=== PATIENT | female | born 1970 | race Caucasian/White ===

== ENCOUNTER → 2019-05-24 15:18 | Outpatient (CLI) | payer OTHER, SELFPAY ==
--- NOTE | ~2019-05-24 | MM_ITS ---
EXAMINATION: MM screening [facility] BI w andrea HISTORY: Screening mammogram TECHNIQUE: Craniocaudal and mediolateral oblique 3-D tomosynthesis images were obtained and synthetic 2-D images were generated. CAD analysis was submitted and interpreted. COMPARISON: 05/29/2018, 05/09/2018, 01/21/2017 BREAST PARENCHYMAL COMPOSITION: There are scattered areas of fibroglandular density. FINDINGS: Stable low-density mass in the outer right breast has been previously characterized as a cy st. There is no evidence of suspicious mass, calcification, or architectural distortion to suggest ma lignancy in either breast. There has been no suspicious interval change. IMPRESSION: 1. No mammographic evidence of malignancy. 2. Recommend routine screening mammography in one year. BI-RADS Category 2: Benign finding(s). Reviewed, dictated and finalized at location A. OGICAL TECHNICAL OFFICER
== END ==
PROVIDERS: PCP Family Medicine; Visit Provider Family Medicine
DX: Z12.31 Encounter for screening mammogram for malignant neoplasm of breast (principal)
CPT/HCPCS: 77063; 77067

== ENCOUNTER → 2020-01-07 13:28 | Outpatient (CLI) | payer OTHER, SELFPAY ==
--- NOTE | ~2020-01-07 | XR_ITS ---
EXAMINATION: XR shoulder RT min 2V DATE: 01/07/2020 14:10 INDICATION: Right shoulder pain. TECHNIQUE: 4 views of right shoulder were obtained. COMPARISON: None. FINDINGS: Bone alignment is normal. No fracture. Joint spaces are well maintained. IMPRESSION: 1. Normal right shoulder. Reviewed, dictated and finalized at location A. IMPRESSION: 1. Normal right shoulder.
== END ==
PROVIDERS: PCP Nurse Practitioner Family; Visit Provider Nurse Practitioner Family
DX: M25.511 Pain in right shoulder (principal)
CPT/HCPCS: 73030

== ENCOUNTER → 2020-03-06 13:58 | Outpatient (CLI) | payer OTHER, SELFPAY ==
--- NOTE | ~2020-03-06 | XR_ITS ---
EXAMINATION: [id number] DATE: 03/06/2020 14:42 INDICATION: Pleurodynia TECHNIQUE: PA view of the chest and 3 views of the right ribs were obtained. COMPARISON: Chest radiograph dated FINDINGS: Nondisplaced anterior right fifth and minimally displaced anterior right sixth rib fractures. Lungs a re clear with no focal airspace opacities, pulmonary edema, pleural effusion or pneumothorax. Cardiom ediastinal silhouette is normal. IMPRESSION: 1. Anterior right fifth and sixth rib fractures. No acute cardiopulmonary disease. Reviewed, dictated and finalized at location A. IAL TESTER IMPRESSION: 1. Anterior right fifth and sixth rib fractures. No acute cardiopulmonary disea se.
== END ==
PROVIDERS: PCP Family Medicine; Visit Provider Family Medicine
DX: S22.41XA Multiple fractures of ribs, right side, initial encounter for closed fracture (principal); X58.XXXA Exposure to other specified factors, initial encounter
CPT/HCPCS: 71101

== ENCOUNTER → 2020-06-27 17:29 | Outpatient (CLI) | payer OTHER, SELFPAY ==
--- NOTE | ~2020-06-27 | MM_ITS ---
EXAMINATION: MM screening [facility] BI w andrea HISTORY: Screening mammogram TECHNIQUE: Craniocaudal and mediolateral oblique 3-D tomosynthesis images were obtained and synthetic 2-D images were generated. CAD analysis was submitted and interpreted. COMPARISON: 05/24/2019, 05/29/2018, 05/09/2018, 01/21/2017 BREAST PARENCHYMAL COMPOSITION: The breasts are heterogeneously dense, which may obscure small masses . FINDINGS: Again noted is a stable low-density mass in the outer right breast. There is no evidence of suspicious mass, calcification, or architectural distortion to suggest malignancy in either breast. There has been no suspicious interval change. IMPRESSION: 1. No mammographic evidence of malignancy. 2. Recommend routine screening mammography in one year. BI-RADS Category 2: Benign finding(s). Reviewed, dictated and finalized at location A.
== END ==
PROVIDERS: PCP Family Medicine; Visit Provider Family Medicine
DX: Z12.31 Encounter for screening mammogram for malignant neoplasm of breast (principal)
CPT/HCPCS: 77063; 77067

== ENCOUNTER → 2021-08-28 11:17 | Outpatient (CLI) | payer OTHER, SELFPAY ==
--- NOTE | ~2021-08-28 | MM_ITS ---
EXAMINATION: MM screening [facility] BI w andrea HISTORY: Screening mammogram TECHNIQUE: Craniocaudal and mediolateral oblique 3-D tomosynthesis images were obtained and synthetic 2-D images were generated. Bilateral rotated lateral CC views. CAD analysis was submitted and interp reted. COMPARISON: 06/27/2020, 05/24/2019 bilateral screening mammogram examinations 05/29/2018 bilateral diagnostic mammogram and bilateral complete breast ultrasound examination BREAST PARENCHYMAL COMPOSITION: There are scattered areas of fibroglandular density. FINDINGS: Left breast: New 6 mm circumscribed low-density mass is noted in the junction of the anterior middle thirds of the upper central left breast slightly lateral to the mid sagittal plane (craniocaudal Andrea synthesis image 54/81). Scattered additional smaller circumscribed left breast masses are noted. Diagnostic left mammogram an d left breast ultrasound examination are recommended. Right breast: No suspicious mass or architectural distortion, malignant calcification, skin thickenin g or retraction or significant new or developing density is detected. IMPRESSION: 1. Left breast masses 2. Diagnostic left mammogram and left breast ultrasound are recommended BI-RADS Category 0: Incomplete: Needs additional imaging evaluation. Reviewed, dictated and finalized at location A.
== END ==
PROVIDERS: PCP Family Medicine; Visit Provider Family Medicine
DX: Z12.31 Encounter for screening mammogram for malignant neoplasm of breast (principal); R92.8 Other abnormal and inconclusive findings on diagnostic imaging of breast
CPT/HCPCS: 77063; 77067

== ENCOUNTER → 2021-09-20 07:40 | Outpatient (CLI) | payer OTHER, SELFPAY ==
--- NOTE | ~2021-09-20 | MMUS_ITS ---
EXAMINATION: MM diagnostic jennifer LT w andrea, US breast LT complete HISTORY: Follow-up left breast asymmetries TECHNIQUE: Additional 3-D tomosynthesis images of the left breast were performed and synthetic 2-D im ages were generated. CAD analysis was submitted and interpreted. High resolution complete left breast ultrasound was performed. COMPARISON: Comparison to multiple prior studies sequentially, with oldest reviewed study dated 01/05. BREAST PARENCHYMAL COMPOSITION: Breast composed of scattered areas of fibroglandular density FINDINGS: MAMMOGRAPHIC FINDINGS: There are no suspicious masses, calcifications or architectural distortion in the left breast to sugg est malignancy. ULTRASOUND: Complete US of all 4 quadrants of the left breast and retroareolar region was reviewed. There are 2 s mall cysts at 4:00, 5 cm from the nipple measuring 5 mm or less. No sonographic evidence for malignan cy. IMPRESSION: 1. No evidence for malignancy in the left breast. 2. Routine yearly screening mammogram and regular clinical breast examination are recommended. BI-RADS Category 2: Benign finding(s). Reviewed, dictated and finalized at location A. IMPRESSION: 1. No evidence for malignancy in the left breast. 2. Routine yearly screening mammogram and regular clinical breast examination a re recommended. BI-RADS Category 2: Benign finding(s).
== END ==
PROVIDERS: PCP Nurse Practitioner Family; Visit Provider Nurse Practitioner Family
DX: R92.8 Other abnormal and inconclusive findings on diagnostic imaging of breast (principal)
CPT/HCPCS: 76641; 77061; 77065; G0279

== ENCOUNTER 2022-09-13 07:23 | Emergency (ER) | payer OTHER, SELFPAY ==
[2022-09-13 07:25] VITALS: BP 148/83; PULSE 91; RESP 16; TEMP 36.8; O2SAT 99
[2022-09-13 07:44] VITALS: O2SAT 99
[2022-09-13 07:45] VITALS: O2SAT 100
[2022-09-13 07:46] LABS: Appearance Urine Cloudy (Clear); Bacteria Urine 2+ /hpf; Basophils Absolute Auto 0.1 K/mm3 (0.0-0.1); Basophils Percent Auto 0.5 % (0.2-1.2); Bilirubin Urine Negative (Negative); Blood Urine Trace (Negative); Color Urine Yellow (Yellow); Eosinophils Percent Auto 0.2 % (0-4.4); Glucose Urine UA Negative (Negative); Hemoglobin 12.4 g/dL (12.0-15.0); Immature Granulocyte Absolute 0.05 K/mm3 (0.00-0.031); Immature Granulocyte Percent A 0.4 % (0-0.5); Ketones Urine Negative (Negative); Leukocyte Esterase Ur 3+ LEU/UL (Negative); Lymphocytes Absolute Auto 1.69 K/mm3 (0.9-3.2); Lymphocytes Percent Auto 13.1 % (18.3-44.2); Mean Corpuscular HGB Conc 32.6 g/dl (32-36); Mean Corpuscular Hemoglobin 30.3 pg (26-34); Mean Corpuscular Volume 92.9 fl (80-100); Mean Platelet Volume 9.2 fl (7.4-10.4); Monocytes Absolute Auto 0.7 K/mm3 (0.1-0.6); Monocytes Percent Auto 5.3 % (2.6-8.5); Neutrophils Absolute Auto 10.4 K/mm3 (1.3-6.7); Neutrophils Percent Auto 80.5 % (45.5-73.1); Nitrate Urine Negative (Negative); Non Pathogenic Casts 0-2; Platelet Count Result 460 k/mm3 (150-375); Protein Urine Trace mg/dL (Negative); Red Blood Count 4.09 M/mm3 (4.2-5.4); Red Cell Distribution Width 13.5 % (11.5-14.5); Specific Grav Ur 1.016 (1.001-1.035); Squamous Epithelial Cell Urine Many /hpf (Few); Urobilinogen Urine 0.2 mg/dL (<2.0); WBC Urine 21-50 /hpf; White Blood Count 12.9 K/mm3 (4.5-10.0)
[2022-09-13 07:48] LABS: Add Urine Microscopic? YES
[2022-09-13 08:00] VITALS: O2SAT 96
[2022-09-13 08:01] VITALS: BP 125/77; O2SAT 95
[2022-09-13 08:01] LABS: Alanine Aminotransferase 62 U/L (6-35); Albumin Level 4.3 g/dL (3.5-5.1); Alkaline Phosphatase 101 U/L (38-126); Anion Gap 9 mmol/L (8-16); Aspartate Amino Transferase 64 U/L (14-36); Bilirubin,Total 0.7 mg/dL (0.2-1.3); Blood Urea Nitrogen 16 mg/dL (7-17); Calcium 8.8 mg/dL (8.4-10.2); Carbon Dioxide 27 mmol/L (22-30); Chloride 98 mmol/L (98-107); Estimated CRCL calculation 79 ml/min; Estimated Glomerular Filt Rate > 60; Glucose 142 mg/dL (65-110); Lipase 82 U/L (23-300); Potassium 4.2 mmol/L (3.4-5.0); Sodium 134 mmol/L (137-145)
[2022-09-13] MEDS: PANTOPRAZOLE SODIUM IV 40 MG VIAL IV PUSH (08:15)
--- NOTE | 2022-09-13 08:24 | ED.GENADULT ---
HPI - General Adult General Chief complaint: Abdominal Pain Stated complaint: vomiting, abd pain Time Seen by Provider: 09/13/22 07:37 History of Present Illness HPI narrative: Patient is a 52-year-old female who presents ER with abdominal pain for 4 days. Epigastric. Associated with heartburn that is the worst she has had. She did have nausea couple days ago with 1 episode of emesis. No gross blood or coffee-ground appearance. Patient does report she has had 2 dark black stools over the last couple days. They were not loose nor did they have any obvious blood. Patient has no history of GI bleed. She has not had an EGD or colonoscopy. She denies any use of NSAIDs prior to her symptoms. Patient has found no alleviating factors at home. Related Data Home Medications Medication Instructions Recorded Confirmed atorvastatin 10 mg tablet mg 09/13/22 bupropion HCl 300 mg 24 hr tablet, mg PO 09/13/22 extended release cyanocobalamin (vitamin B-12) mcg 09/13/22 09/13/22 1,000 mcg tablet ergocalciferol (vitamin D2) 1,250 09/13/22 mcg (50,000 unit) capsule Allergies Allergy/AdvReac Type Severity Reaction Status Date / Time No Known Allergies Allergy Verified 09/13/22 08:14 Review of Systems Review of Systems: All systems reviewed & are unremarkable except as noted in HPI and below Constitutional: Constitutional: Denies chills, Denies fatigue and Denies fever(s) ENT: Denies nasal congestion and Denies sore throat Cardiovascular: Cardiovascular: Denies chest pain, Denies rapid heart rate and Denies radiating jaw, neck or arm pain Respiratory: Respiratory: Denies cough and Denies dyspnea Gastrointestinal: Gastrointestinal: Reports abdominal pain, Denies constipation, Reports heartburn, Denies diarrhea, Reports nausea and Reports vomiting Genitourinary: Genitourinary: Denies dysuria and Denies flank pain PMFSH Past Medical History Medical History (Updated 09/13/22 @ 08:39 by Ravinder Burt MD) Depression Dyslipidemia Hypertension Surgical History Surgical History (Updated 09/13/22 @ 08:39 by Ravinder Burt MD) No pertinent past surgical history Family History Family History (Updated 02/03/17 @ 09:00 by DOCTOR UNKNOWN) Other Diabetes mellitus Family history of premature coronary heart disease Hypertension Social History Social History Smoking status: Never smoker Alcohol intake: never Exam Narrative: GENERAL: Well-appearing, well-nourished, and in no acute distress. HEAD: Normocephalic, atraumatic. ENT: Mucous membranes moist. CHEST: Clear to auscultation. No respiratory distress. HEART: Regular rate and rhythm. Normal peripheral pulses. ABDOMEN: Soft, nontender, nondistended. Hemoccult positive stool that is not melanotic/black/brown. EXTREMITIES: Normal range of motion. No edema. SKIN: Warm, dry, no rash. NEURO: Alert and oriented x3. PSYCH: Normal mood and affect. Course Course Emergency Course: Discussed case with GI on-call Dr. Palomares. Discussed possible admission versus discharge home. Shared decision making with the patient as well as with GI occurred and patient has opted for discharge home with oral Protonix twice a day. We discussed strict return precautions. Discussed need for outpatient follow-up and endoscopy. Patient verbalized understanding of this. Patient is not on any blood thinning medication. She has had no melena or gross blood. She is not hypotensive and has not been feeling weak or dizzy. Urine appears contaminated and patient does not have symptoms of UTI so she will not be treated. Vital Signs Vital signs: Vital Signs Temperature 98.3 F 09/13/22 07:25 Pulse Rate 91 09/13/22 07:25 Respiratory Rate 16 09/13/22 07:25 Blood Pressure 148/83 H 09/13/22 07:25 Pulse Oximetry 99 09/13/22 07:25 Oxygen Delivery Room Air 09/13/22 07:25 Temperature 98.3 F 09/13/22 07:25 Pulse Rate 91
[2022-09-13] MEDS: BELLADONNA ALK/PHENOB ELIX 10 ML, MAG HYDROX/ALUMINUM HYD/SIMETH 30 ML, LIDOCAINE HCL 2... PO (08:47)
--- NOTE | 2022-09-13 08:53 | PC.NURSE ---
Patient called for RN to come back to room and informed RN that she had vomited after the GI cocktail due to the taste. Patient denies need for anti-emetic at this time. Patient just asked to take a few minutes prior to leaving the department. RN made LUCIEN Duran charge nurse aware.
--- NOTE | 2022-09-13 09:24 | PC.NURSE ---
Patient notified LUCIEN Duran charge nurse that she felt better and was going to go ahead and leave. Finishing Machine Operator Automatic reviewed discharged papers with patient, patient denies any questions or comments at this time. Patient alert and ambulatory to ED exit.
== END 2022-09-13 09:27 | disposition home or self-care (01) ==
PROVIDERS: Emergency Provider Emergency Medicine; PCP Nurse Practitioner Family
DX: K92.2 Gastrointestinal hemorrhage, unspecified (principal); F32.A Depression, unspecified; I10 Essential (primary) hypertension; E78.5 Hyperlipidemia, unspecified
CPT/HCPCS: 36415; 80053; 81001; 81025; 83690; 85025; 87086; 87088; 96374; 99284; A9270; C9113

== ENCOUNTER → 2022-09-24 16:40 | Outpatient (CLI) | payer OTHER, SELFPAY ==
--- NOTE | ~2022-09-24 | MM_ITS ---
EXAMINATION: MM screening [facility] BI w andrea HISTORY: Screening mammogram TECHNIQUE: Craniocaudal and mediolateral oblique 3-D tomosynthesis images were obtained and synthetic 2-D images were generated. CAD analysis was submitted and interpreted. COMPARISON: 09/20/2021 diagnostic left mammogram and complete left breast ultrasound examination 08/24/2021, 06/27/2020, 05/24/2019 bilateral screening mammogram examinations BREAST PARENCHYMAL COMPOSITION: There are scattered areas of fibroglandular density. FINDINGS: Focal asymmetry is noted at mid depth at the inner aspect of the inner left breast on CC pr ojection. Diagnostic left mammogram is recommended, with ultrasound if required. Otherwise no suspicious mass, architectural distortion, malignant microcalcifications, skin thickenin g or retraction or significant new or developing density of either breast. Is detected. IMPRESSION: 1. Focal asymmetry, inner aspect of inner left breast on screening craniocaudal view 2. Diagnostic left mammogram is recommended, with ultrasound if required BI-RADS Category 0: Incomplete: Needs additional imaging evaluation. Reviewed, dictated and finalized at location A.
== END ==
PROVIDERS: PCP Nurse Practitioner Family; Visit Provider Nurse Practitioner Family
DX: Z12.31 Encounter for screening mammogram for malignant neoplasm of breast (principal); R92.8 Other abnormal and inconclusive findings on diagnostic imaging of breast
CPT/HCPCS: 77063; 77067

== ENCOUNTER 2022-10-31 01:20 | Day surgery (SDC) | payer OTHER, SELFPAY ==
[2022-10-21 14:31] VITALS: BMI 31.6
[2022-10-31 10:23] VITALS: BP 122/80; PULSE 79; RESP 18; TEMP 36.9; O2SAT 100
--- NOTE | 2022-10-31 10:36 | WPDHPUPDATE1 ---
History and Physical Update Update Date/Time: 10/31/22 10:36 History and Physical has been reviewed, including an updated exam of the patient. There are NO changes in the patient's condition. Risks, benefits, and alternatives have been discussed and questions answered. Patient agrees to proceed with procedure.
[2022-10-31] MEDS: LACTATED RINGERS 1,000 ML 150 ML IV CONT (10:39)
--- NOTE | 2022-10-31 11:03 | P.PNAN_ITS ---
Anes - Initial Pre Proc Eval Procedure: Operation Date: 10/31/22 11:30 Proposed Procedures p Esophagogastroduodenoscopy - Landen Almazan MD Date/Time: 10/31/22 11:03 Surgeon: Landen Almazan MD Pre Op Diagnosis: melena, GERD, epigastric pain Patient Data Age: 52 Gender: F Height: 1.78 m Weight: 102.3 kg Last Vital Signs Temp 98.5 F 10/31/22 10:23 Pulse 79 10/31/22 10:23 Resp 18 10/31/22 10:23 BP 122/80 10/31/22 10:23 Pulse Ox 100 10/31/22 10:23 O2 Del Method Room Air 10/31/22 10:23 Allergies Allergy/AdvReac Type Severity Reaction Status Date / Time No Known Allergies Allergy Verified 10/31/22 10:21 Home Medications Medication Instructions Recorded Confirmed Type lisinopril 20 1 tablet PO DAILY #30 tabs 05/31/19 10/21/22 Rx mg-hydrochlorothiazide 25 mg tablet atorvastatin 10 mg tablet 10 mg PO DAILY 09/13/22 10/21/22 History bupropion HCl 300 mg 24 hr tablet, 300 mg PO DAILY 09/13/22 10/21/22 History extended release cyanocobalamin (vitamin B-12) 1,000 mcg PO DAILY 09/13/22 10/21/22 History 1,000 mcg tablet ergocalciferol (vitamin D2) 1,250 1,250 unit PO WEEKLY 09/13/22 10/21/22 History mcg (50,000 unit) capsule pantoprazole 40 mg tablet,delayed 40 mg PO DAILY #30 tabs 10/03/22 10/21/22 Rx release Patient hx anesthesia problems: none Family hx anesthesia problems: none Results Review: All pre-operative results and documents have been reviewed as part of the pre- operative evaluation. [facility] Past Medical History Medical History (Updated 10/03/22 @ 14:09 by Loree Lucas APRN) Colon cancer screening Depression Dyslipidemia Epigastric pain GERD (gastroesophageal reflux disease) Hypertension Melena Obesity Upper GI bleed Surgical History Surgical History (Updated 09/13/22 @ 08:39 by Ravinder Burt MD) No pertinent past surgical history Family History Family History (Updated 02/03/17 @ 09:00 by DOCTOR UNKNOWN) Other Diabetes mellitus Family history of premature coronary heart disease Hypertension Social History Social History Smoking status: Never smoker Alcohol intake: never Spiritual care concerns: No Anes - Eval Final PreProcedure Day of Procedure 10/31/22 11:03 Patient weight: obese Heart: regular rate and rhythm Lungs: clear to auscultation Airway: Mallampati scale class III Neurological: alert and oriented Last oral intake: >/= 8 hours ASA classification: II Emergent: no Anesthetic plan: proceed Anesthesia type and monitoring: general GIVS and standard monitoring Results Review: All pre-operative results and documents have been reviewed as part of the pre- operative evaluation. Informed Consent: The patient's anesthetic plan and its attendant risks and benefits were discussed with the patient/family/POA. Questions were solicited and answers provided to the satisfaction of the patient/family/POA.
--- NOTE | 2022-10-31 11:44 | SUR.OPER ---
Patient O2 saturation started to decline rapidly after start of procedure. Ambu bag was used, oral airway placed and oral suction used by LASTING MACHINE OPERATOR. Dr. Fermin was called immediately.
[2022-10-31 11:50] VITALS: BP 132/81; PULSE 95; RESP 22; O2SAT 96
[2022-10-31 12:00] VITALS: BP 129/87; PULSE 89; RESP 20; O2SAT 99
[2022-10-31 12:10] VITALS: BP 121/75; PULSE 87; RESP 20; O2SAT 99
== END 2022-10-31 12:20 | disposition home or self-care (01) ==
PROVIDERS: PCP Nurse Practitioner Family; Visit Provider Internal Medicine Gastroenterology
PROC: 0DJ08ZZ Inspection of Upper Intestinal Tract, Via Natural or Artificial Opening Endoscopic (ICD-10-PCS; CPT 43235; principal; 2022-10-31 11:30)
DX: K21.9 Gastro-esophageal reflux disease without esophagitis (principal); E78.5 Hyperlipidemia, unspecified; F32.A Depression, unspecified; I10 Essential (primary) hypertension; K92.1 Melena; E66.9 Obesity, unspecified; Z68.32 Body mass index [BMI] 32.0-32.9, adult
CPT/HCPCS: 43235; J2704; J7120

== ENCOUNTER → 2022-12-13 15:00 | Outpatient (CLI) | payer OTHER, SELFPAY ==
--- NOTE | ~2022-12-13 | XR_ITS ---
EXAMINATION: XR foot RT min 3V DATE: 12/13/2022 15:23 INDICATION: Right foot pain, initial encounter TECHNIQUE: Dorsoplantar, lateral, and 2 oblique views of the right foot were obtained. COMPARISON: None. FINDINGS: There is a nondisplaced fracture in the neck of the third proximal phalanx. No definite add itional fracture is identified. 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 There is soft tissue swelling of the third and fourth toes. IMPRESSION: 1. Nondisplaced fracture in the neck of the third proximal phalanx. Reviewed, dictated and finalized at location B.
== END ==
PROVIDERS: PCP Nurse Practitioner Family
DX: S92.514A Nondisplaced fracture of proximal phalanx of right lesser toe(s), initial encounter for closed fracture (principal); X58.XXXA Exposure to other specified factors, initial encounter
CPT/HCPCS: 73630

== ENCOUNTER → 2022-12-17 08:15 | Outpatient (CLI) | payer OTHER, SELFPAY ==
--- NOTE | ~2022-12-17 | MMUS_ITS ---
EXAMINATION: MM diagnostic jennifer LT w andrea, US breast LT limited HISTORY: Focal asymmetry reported in the inner aspect of the left breast on screening craniocaudal vi ew of 09/24/2022 TECHNIQUE: Additional 3-D tomosynthesis images of left breast were performed and synthetic 2-D images were generated. Rolled medial and rolled lateral craniocaudal views. CAD analysis was submitted and interpreted. High resolution upper inner quadrant left breast ultrasound was performed. COMPARISON: 09/24/2022 bilateral screening mammogram 6. Slice diagnostic left mammogram and complete left breast ultrasound 08/24/2021, 06/27/2020 bilateral screening mammogram examinations FINDINGS: MAMMOGRAPHIC FINDINGS: The focal asymmetry disappears on the rolled medial craniocaudal view, suggesting that the focal asym metry reported on the craniocaudal screening view is composite shadowing of overlapping fibroglandula r content. ULTRASOUND: No suspicious mass or shadowing, cyst or other significant sonographic finding is noted in the upper inner quadrant of the left breast. IMPRESSION: 1. No mammographic evidence of malignancy 2. Routine annual mammographic screening is recommended BI-RADS Category 1: Negative Reviewed, dictated and finalized at location A. IMPRESSION: 1. No mammographic evidence of malignancy 2. Routine annual mammographic screening is recommended BI-RADS Category 1: Negative
== END ==
PROVIDERS: PCP Nurse Practitioner Family; Visit Provider Nurse Practitioner Family
DX: R92.8 Other abnormal and inconclusive findings on diagnostic imaging of breast (principal)
CPT/HCPCS: 76642; 77061; 77065; G0279

== ENCOUNTER 2023-02-16 08:27 | Emergency (ER) | payer OTHER, SELFPAY ==
[2023-02-16 08:39] VITALS: BP 120/75; PULSE 90; RESP 20; TEMP 36.6; O2SAT 100
--- NOTE | 2023-02-16 09:07 | ED.GENADULT ---
HPI - General Adult General Chief complaint: Urogenital-Female Stated complaint: Blood In Urine Source: patient Mode of arrival: ambulatory Limitations: no limitations History of Present Illness HPI narrative: Patient presents for evaluation of hematuria for the last four days. Denies any fever, chills, nausea, vomiting, abdominal pain, low back pain, dysuria, urinary frequency/hesitancy, and decreased urinary output. She has had symptoms on and off for the past twenty years. She states she saw a provider for this many years ago and no clear cause was identified. She does not smoke. Occasionally uses ibuprofen but no regularly. She is not anticoagulated. She has an underlying hx of hypertension but no history of diabetes. Surgical history positive for hysterectomy. Related Data Home Medications Medication Instructions Recorded Confirmed atorvastatin 10 mg tablet 10 mg PO DAILY 09/13/22 02/16/23 bupropion HCl 300 mg 24 hr tablet, 300 mg PO DAILY 09/13/22 02/16/23 extended release cyanocobalamin (vitamin B-12) 1,000 mcg PO DAILY 09/13/22 02/16/23 1,000 mcg tablet ergocalciferol (vitamin D2) 1,250 1,250 unit PO WEEKLY 09/13/22 02/16/23 mcg (50,000 unit) capsule Allergies Allergy/AdvReac Type Severity Reaction Status Date / Time No Known Allergies Allergy Verified 02/16/23 08:40 Review of Systems Review of Systems: CONSTITUTIONAL: Denies fever, chills, or sweats. EYES: Denies visual changes, redness, or discharge. ENT: Denies rhinorrhea, congestion, sore throat, or otalgia. CARDIOVASCULAR: Denies chest pain, palpitations, or edema. RESPIRATORY: Denies cough or dyspnea. GASTROINTESTINAL: Denies abdominal pain, nausea, vomiting, or diarrhea. GENITOURINARY: reports hematuria. Denies urinary frequency, urgency, hesitancy, decreased urinary output, vaginal bleeding SKIN: Denies rash or itching. MUSCULOSKELETAL: Denies back pain, joint pain, or myalgia. NEUROLOGIC: Denies headache, numbness, dizziness, or weakness. PSYCHIATRIC: Denies anxiety or depression. [facility] Past Medical History Medical History (Updated 02/16/23 @ 09:10 by Ryan Whitehead, GLASS OR MIRROR INSPECTOR, ) Colon cancer screening Depression Dyslipidemia Epigastric pain GERD (gastroesophageal reflux disease) Hypertension Melena Obesity Upper GI bleed Surgical History Surgical History History of cholecystectomy History of hysterectomy Family History Family History Other Diabetes mellitus Family history of premature coronary heart disease Hypertension Social History Social History Smoking status: Never smoker Alcohol intake: never Substance use: never Gender identity (if verbalized by the patient): Female Spiritual care concerns: No Exam Narrative: GENERAL: Well-appearing, well-nourished, and in no acute distress. HEAD: Normocephalic, atraumatic. EYES: PERRLA and EOMI. ENT: Nares clear, no rhinorrhea or epistaxis. Mucous membranes moist. Oropharynx without tonsillar hypertrophy exudate or other lesions. Bilateral TMs pearly rowley nonbulging NECK: Supple. No adenopathy or masses. No carotid bruits or JVD CHEST: Clear to auscultation. No respiratory distress. No wheezes rales or rhonchi HEART: Regular rate and rhythm. No murmur heard. Normal peripheral pulses. ABDOMEN: Soft, nontender, nondistended, normal active bowel sounds. No CVA tenderness EXTREMITIES: Normal range of motion. No edema. SKIN: Warm, dry, no rash. NEURO: No focal deficits. Alert and oriented x3. PSYCH: Normal mood and affect. Course Course Emergency Course: this is a 52-year-old female who presented for evaluation of hematuria. No abdominal pain or flank pain to suggest kidney stones. She has no other urinary symptoms. Urine today positive for blood and prot
== END 2023-02-16 09:08 | disposition home or self-care (01) ==
PROVIDERS: Emergency Provider Nurse Practitioner; PCP Nurse Practitioner Family
DX: R80.9 Proteinuria, unspecified (principal); R31.9 Hematuria, unspecified; E78.5 Hyperlipidemia, unspecified; K21.9 Gastro-esophageal reflux disease without esophagitis; I10 Essential (primary) hypertension; E66.9 Obesity, unspecified; Z68.31 Body mass index [BMI] 31.0-31.9, adult; F32.A Depression, unspecified
CPT/HCPCS: 81003; 99212; G0463

== ENCOUNTER 2023-11-17 07:58 | Outpatient (CLI) | payer OTHER, SELFPAY ==
--- NOTE | ~2023-11-17 | NM_ITS ---
EXAMINATION: NM denver perf SPECT rest & str DATE: 11/17/2023 10:23 INDICATION: Shortness of breath TECHNIQUE: Rest images were obtained following intravenous administration of 9.66 mCi Tc99m tetrofosm in (Myoview). The patient performed an exercise activity. At peak exercise, 31.2 mCi Tc99m tetrofosmi n (Myoview) was administered intravenously, and stress images were obtained. Data was reconstructed i nto short axis and horizontal and vertical long axis SPECT images. Gated SPECT images were also obtai jean-pierre. COMPARISON: None. FINDINGS: There is normal left ventricular perfusion without definite evidence of reversible or fixed perfusion abnormality to suggest ischemia or infarction. There is normal left ventricular chamber size, wall motion and ejection fraction. Left ventricular ejection fraction measures >70%. IMPRESSION: 1. Normal myocardial perfusion at rest and during stress. 2. Left ventricular ejection fraction measuring >70%. Reviewed, dictated and finalized at location A.
--- NOTE | 2023-11-17 08:08 | EST_ITS ---
Patient Info Name: Rosemary Burch Age: 53 years : 1970 Gender: Female Ht: 70 in Wt: 202 lbs BSA: 2.15 m2 HR: 70 bpm BP: 123 / 87 mmHg Heart Rhythm: Sinus Rhythm Exam Date: 11/17/2023 8:57 AM Exam Location: Echo Lab Patient Status: Outpatient Admit Date: 11/17/2023 Staff Ordering Physician: Italia Beatty APRN Attending Provider: Italia Beatty APRN Exercise Technologist: Claire Michael CT Exercise Physician: Baltazar Zhang DO Exam Type: CA stress test treadmill w NM Study Info Indications R06.02 - Shortness of breath A nuclear stress test was performed. Summary 1. 1. Abnormal Carlin exercise stress test for ischemic ST changes by ECG criteria. Patient achieved only 77% MPHR for age group which reduces sensitivity of the test. 2. 2. Reduced functional capacity, achieving 8 METs of workload. 3. 3. Hypertensive response to exercise. 4. 4. Appropriate HR response to exercise. 5. 5. Appropriate HR recovery at 1 minute post exercise. 6. 6. Nuclear scan to follow and will be reported separately. Please correlate with it. 7. 7. Patient informed of the above results. Protocol: Carlin Stress ECG Details Stage: REST Duration (min): 0 min : 56 sec Speed (mph): 0.0 Grade (%): 0 HR (bpm): 71 SBP (mmHg): 123 DBP (mmHg): 87 METS: --- Stage: REST Duration (min): 4 min : 7 sec Speed (mph): 0.0 Grade (%): 0 HR (bpm): 76 SBP (mmHg): 123 DBP (mmHg): 87 METS: --- Stage: STAGE 1 Duration (min): 1 min : 0 sec Speed (mph): 1.7 Grade (%): 10 HR (bpm): 95 SBP (mmHg): 123 DBP (mmHg): 87 METS: --- Stage: STAGE 1 Duration (min): 2 min : 0 sec Speed (mph): 1.7 Grade (%): 10 HR (bpm): 101 SBP (mmHg): 123 DBP (mmHg): 87 METS: --- Stage: STAGE 1 Duration (min): 3 min : 0 sec Speed (mph): 1.7 Grade (%): 10 HR (bpm): 104 SBP (mmHg): 133 DBP (mmHg): 71 METS: --- Stage: STAGE 2 Duration (min): 1 min : 0 sec Speed (mph): 2.5 Grade (%): 12 HR (bpm): 111 SBP (mmHg): 133 DBP (mmHg): 71 METS: --- Stage: STAGE 2 Duration (min): 2 min : 0 sec Speed (mph): 2.5 Grade (%): 12 HR (bpm): 121 SBP (mmHg): 168 DBP (mmHg): 70 METS: --- Stage: STAGE 2 Duration (min): 3 min : 0 sec Speed (mph): 2.5 Grade (%): 12 HR (bpm): 126 SBP (mmHg): 168 DBP (mmHg): 70 METS: --- Stage: STAGE 3 Duration (min): 0 min : 35 sec Speed (mph): 3.4 Grade (%): 14 HR (bpm): 128 SBP (mmHg): 168 DBP (mmHg): 70 METS: --- Stage: RECOVERY Duration (min): 0 min : 24 sec Speed (mph): 0.0 Grade (%): 0 HR (bpm): 126 SBP (mmHg): 168 DBP (mmHg): 70 METS: --- Stage: RECOVERY Duration (min): 1 min : 24 sec Speed (mph): 0.0 Grade (%): 0 HR (bpm): 108 SBP (mmHg): 227 DBP (mmHg): 128 METS: --- Stage: RECOVERY Duration (min): 2 min : 24 sec Speed (mph): 0.0 Grade (%): 0 HR (bpm): 100 SBP (mmHg): 227 DBP (mmHg): 128 METS: ---
== END 2023-11-17 07:59 | disposition home or self-care (01) ==
PROVIDERS: PCP Nurse Practitioner Family; Visit Provider Nurse Practitioner Family
DX: R06.02 Shortness of breath (principal)
CPT/HCPCS: 78452; 93017; A9502

== ENCOUNTER 2024-02-05 14:33 | Outpatient (CLI) | payer OTHER, SELFPAY ==
--- NOTE | ~2024-02-05 | MM_ITS ---
EXAMINATION: MM screening jennifer BI w andrea HISTORY: Screening mammogram TECHNIQUE: Craniocaudal and mediolateral oblique 3-D tomosynthesis images were obtained and synthetic 2-D images were generated. CAD analysis was submitted and interpreted. COMPARISON: 09/24/2022, 08/28/2021, 06/27/2020 BREAST PARENCHYMAL COMPOSITION:Not Dense. There are scattered areas of fibroglandular density. FINDINGS: Possible developing 6 mm mass at the upper, outer right breast. Stable parenchymal pattern of the left breast. No suspicious microcalcifications. IMPRESSION: Possible developing 6 mm upper, outer right breast mass. Spot compression views, and possibly ultras ound, are recommended for further evaluation. BI-RADS Category 0: Incomplete: Needs additional imaging evaluation. Reviewed, dictated and finalized at location . IMPRESSION: Possible developing 6 mm upper, outer right breast mass. Spot compression view s, and possibly ultrasound, are recommended for further evaluation. BI-RADS Category 0: Incomplete: Needs additional imaging evaluation.
== END 2024-02-05 14:34 | disposition home or self-care (01) ==
LOC: ANHIMG 14:34
PROVIDERS: PCP Nurse Practitioner Family; Visit Provider Nurse Practitioner Family
DX: Z12.31 Encounter for screening mammogram for malignant neoplasm of breast (principal); R92.8 Other abnormal and inconclusive findings on diagnostic imaging of breast
CPT/HCPCS: 77063; 77067

== ENCOUNTER 2024-02-24 11:39 | Outpatient (CLI) | payer OTHER, SELFPAY ==
--- NOTE | ~2024-02-24 | MMUS_ITS ---
EXAMINATION: MM diagnostic jennifer RT w andrea, US breast RT limited HISTORY: Possible right breast mass TECHNIQUE: Additional 3-D tomosynthesis images of the right breast were performed and synthetic 2-D i mages were generated. CAD analysis was submitted and interpreted. High resolution limited right breas t ultrasound was performed. COMPARISON: 02/05/2024, 09/24/2022 BREAST PARENCHYMAL COMPOSITION:Not Dense. There are scattered areas of fibroglandular density. FINDINGS: MAMMOGRAPHIC FINDINGS: Spot compression views demonstrate persistent probable 5 mm subareolar mass in the right breast. Poss ible low-density 5 mm mass in the upper, outer right breast. ULTRASOUND: At the 9:00 position right breast, 6 cm of the nipple, there is a 6 x 3 x 6 mm circumscribed parallel hypoechoic mass. No posterior shadowing or internal vascularity. There is a similar-appearing 6 x 3 x 6 mm mass at the 9:00 position right breast, 5 cm from the nipple. IMPRESSION: 2 separate subcentimeter, probable benign masses at the upper, outer right breast, as detailed above . Six-month follow-up right mammogram and ultrasound recommended to reassess. No overt evidence for malignancy. BI-RADS category 3, probably benign findings. Reviewed, dictated and finalized at location M. OOD MANAGER IMPRESSION: 2 separate subcentimeter, probable benign masses at the upper, outer right red ast, as detailed above. Six-month follow-up right mammogram and ultrasound wero mmended to reassess. No overt evidence for malignancy. BI-RADS category 3, probably benign findings.
== END 2024-02-24 11:40 | disposition home or self-care (01) ==
LOC: ANHIMG 11:41
PROVIDERS: PCP Nurse Practitioner Family; Visit Provider Nurse Practitioner Family
DX: R92.8 Other abnormal and inconclusive findings on diagnostic imaging of breast (principal)
CPT/HCPCS: 76642; 77061; 77065; G0279

== ENCOUNTER 2024-09-14 10:46 | Outpatient (CLI) | payer OTHER, SELFPAY ==
--- NOTE | ~2024-09-14 | MMUS_ITS ---
EXAMINATION: MM diagnostic jennifer RT w andrea, US breast RT complete HISTORY: Follow-up probable benign mass. TECHNIQUE: Additional 3-D tomosynthesis images of the right breast were performed and synthetic 2-D i mages were generated. CAD analysis was submitted and interpreted. High resolution complete right rebeka st ultrasound was performed. COMPARISON: Comparison to multiple prior studies sequentially, with oldest reviewed study dated 08/28. BREAST PARENCHYMAL COMPOSITION: Not dense: There are scattered areas of fibroglandular density. FINDINGS: MAMMOGRAPHIC FINDINGS: There are no new masses, calcifications or architectural distortion in the right breast to suggest ma lignancy. ULTRASOUND: Complete US of all 4 quadrants of the right Breast/s and retroareolar region was reviewed. at 8:00, 2 cm from the nipple there is a 4 mm cyst. At 9:00, 6 cm from the nipple there is a 6 mm cyst. At 9:00 , 5 cm from the nipple there are 2 adjacent cysts measuring 5 mm greatest dimension. IMPRESSION: 1. No evidence for malignancy in the right breast. Benign findings. 2. Routine yearly screening mammogram and regular clinical breast examination are recommended. BI-RADS Category 2: Benign finding(s). Reviewed, dictated and finalized at location B. IMPRESSION: 1. No evidence for malignancy in the right breast. Benign findings. 2. Routine yearly screening mammogram and regular clinical breast examination a re recommended. BI-RADS Category 2: Benign finding(s).
--- OUTSIDE RECORDS SUMMARY | 2024-09-14 12:04 | XMS_ITS | Referral Summary ---
Author Organization [address] Address [address] [place] [id number] Care Team Providers Care Lyric Writer Name Role Phone Italia Beatty NP Primary Care Provider [phone] Allergies No known active allergies Medications atorvastatin (LIPITOR) 10 mg tablet Oral 4 Active buPROPion XL (WELLBUTRIN XL) 300 mg 24 hr tablet Take 1 tablet (300 mg total) by mouth every morning Active ergocalciferol (VITAMIN D) 50,000 unit capsule Oral 4 Active lisinopril-hydr oCHLOROthiazide (ZESTORETIC) 20-25 mg per tablet TAKE 1 TABLET BY MOUTH DAILY. *MUST SCHEDULE APPOINTMENT FOR REFILLS Active Rybelsus 7 mg tablet Take 1 tablet (7 mg total) by mouth daily 4 Active famotidine (PEPCID) 20 mg tablet Take 1 tablet (20 mg total) by mouth 2 (two) times a day Active Active Problems Problem Noted Date Diagnosed Date Hypertension 11/26/2023 Hyperlipidemia 11/26/2023 Abnormal result of other cardiovascular function study 11/26/2023 Dyspnea on exertion 11/26/2023 Social History Tobacco Use Types Packs/Day Years Used Date Smoking Tobacco: Never Tobacco Cessation:Counseling Given: Not Answered Personal Safety Answer Date Recorded Getting School Help Needed Not on file 06/21 Comments Unknown Sex and Gender Information Value Date Recorded Sex Assigned at Not on file 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 Gender Identity Not on file Sexual Orientation Not on file Last Filed Vital Signs Vital Sign Reading Time Taken Comments Blood Pressure 115/87 12/02/2023 10:50 AM CDT Pulse 90 11/26/2023 10:04 AM CDT Temperature - - Respiratory Rate - - Oxygen Saturation 98% 11/26/2023 10:04 AM CDT Inhaled Oxygen Concentration - - Weight 92.5 kg (204 lb) 11/26/2023 10:04 AM CDT Height 177.8 cm (5' 10) 11/26/2023 10:04 AM CDT Body Mass Index 29.27 11/26/2023 10:04 AM CDT Plan of Treatment Not on file Insurance [facility] Care Teams Lyric Writer Relationship Specialty Start Date End Date Italia Beatty NP [address] [place] [address] PCP - General Nurse Practitioner 11/26/23
--- OUTSIDE RECORDS SUMMARY | 2024-09-14 12:04 | XMS_ITS | Data Portability ---
Author Organization [facility] [employer], Main Office Address [address] [place] [address] Care Team Providers Care [employer] Senior Officer Name Role Phone PRICILA TALAMANTES ZACHARY Primary Care Provider PRICILA TALAMANTES ZACHARY Referring Provider [phone] Assessment No assessment recorded. Plan of Treatment Reminders Order Date Submit Date Provider Last Modified By Organization Details Last Modified Time Details Appointments None recorded. Lab HbA1c (hemoglobin A1c), blood 2022 023 [facility], [address], [place], [address], 3 09:54:44 lipid panel, serum 2022 023 [email or web address] [facility], [address], [place], [address], 3 09:54:44 Referral packaging designer referral 2022 023 [email or web address] 3 Scar Sahu DP, [address] [facility], [address], [place], [address], 3 08:08:31 Procedures None recorded. Surgeries None recorded. Imaging XR, foot, 3 or more view [email or web address] [facility] Carlos Contreras, [facility], [place], [address], 3 17:09:53 Medication Orders pantoprazol e 40 mg tablet,jordan rincond release 2022 023 [facility] #[id number], [address], [place], [address], 3 16:18:29 Patient TargetsNo targets recorded. Patient InstructionsNo instructions recorded. Reason for Referral Physician Advisor Referral for Frac ture of foot Referring Physician: Chintan Talamantes, Family Medicine, Encounter Date: 12/18/2022 Results Created Date Observation Date Name Description Value Unit Range Abnormal Flag Note LastModifiedBy Organization Detail LastModifiedTime 07/10/1907/10/2022 LIPID PANEL , STAND UBALDO cholesterol, total 166 mg/dL <200 normal Not Available [place] [address] [place], [address], 07/10/2022 02:14:10 07/10/1907/10/2022 LIPID PANEL , STAND UBALDO HDL cholesterol 43 mg/dL > or = 50 low Not Available [facility] [place] [address] [place], [address], 07/10/2022 02:14:10 07/10/1907/10/2022 LIPID PANEL , STAND UBALDO triglyceride s 108 mg/dL <150 normal Not Available [facility] [place] [address] [place], [address], 07/10/2022 02:14:10 07/10/1907/10/2022 LIPID PANEL , STAND UBALDO LDL-choleste rol 103 mg/dL _(irlanda c) high Refer ence range : <100 Danielle able range <100 mg/dL for prima ry preve ntion ; <70 mg/dL for patie nts with CHD or diabe tic patie nts with > or = 2 CHD risk facto rs. LDL-C is now calcu lated using the Evangelina n-Hop kins calcu sandy n, which is a valid ated novel mandio jaylene link acclive than the Fried molly equat ion in the estim ation of LDL-C . Evangelina n SS et al. GIDEON. 2013; 310(1 9): 2061- 2068 (http ://ed ucati on.[employer] Moise dillonLikez. com/f aq/FA Q164) Not Available [facility] [address] [address] [place], [address], 07/10/2022 02:14:10 07/10/19 23 07/10/2022 LIPID PANEL , STAND UBALDO chol/HDLC ratio 3.9 (calc ) <5.0 normal Not Available [facility] [address] [place], [address], 07/10/2022 02:14:10 07/10/1907/10/2022 LIPID PANEL , STAND UBALDO non HDL cholesterol 123 mg/dL _(irlanda c) <130 normal For patie nts with diabe ranulfo plus 1 major ASCVD risk facto r, treat ing to a non-H DL-C goal of <100 mg/dL (LDL- C of <70 mg/dL ) is consi dered a thera peuti c optio n. Not Available [facility] [address] [place], [address], 07/10/2022 02:14:10 07/10/1907/10/2022 HEMOG LOBIN A1C hemoglobin A1C 6.4 %_of_ total _HGB <5.7 high For someo ne witho ut known diabe ranulfo, a hemog lobin A1c value betwe en 5.7% and 6.4% is consi stent with predi abete s and shoul d be confi rmed with a follo w-up test. For someo ne with known diabe ranulfo, a value <7% indic ates that their diabe ranulfo is well contr olled . A1c targe ts shoul d be indiv idual ized based on durat ion of diabe ranulfo, age, comor bid condi tions , and other consi derat ions. This assay resul t is consi stent with an incre ased risk of diabe ranulfo. Curre ntly, no conse nsus exist s belén canchola use of hemog lobin A1c for diagn osis of diabe ranulfo for child manuela. Not Available [facility] [address] [address] , [place], [address], 07/10/2022 02:14:11 09/25/19 23 09/24/2022 MAMMO , scree jef, digit al, bilat eral No observ ation record ed. [email or web address] [facility] [address], [place], [address], 11/13/2022 13:56:18 10/23/19 23 10/22/2022 mammo gram, follo w up* No observ ation record ed. [email or web address] [facility] [address], [place], [address], 11/13/2022 09:39:52 12/14/19 23 12/13/2022 XR, foot, 3 or more view No observ ation record ed. [email or web address] [facility] [address], [place], [address], 12/18/2022 09:01:46 12/18/19 23 12/17/2022 MAMMO , diagn ostic , digit al, unila teral No observ ation record ed. [email or web address] [facility] [address], [place], [address], 02/11/2023 11:27:53 12/24/19 XR, foot, 3 or more view No observ ation record ed. [email or web address] [facility] Carlos Contreras [address] [facility] [address], [place], [address], 12/23/2022 17:09:37 Result Notes None recorded. Problems Name Problem SNOMED Code Status Onset Date Resolution Date Notes Provider Name and Address Organization Details Recorded Time Dyslipidem ks 638721113 Active 2019 Not Available [employer] 3 20:39:33 Hypertensi ve disorder 15206999 Active 2020 Not Available [facility] 3 20:39:33 Prediabete s 163115573 Active 2019 Not Available [facility] 3 20:39:33 Hyperlipid emia 82601534 Active 2022 NEGRITO Christian [address], [address], [place], [address] , [facility] [employer] [facility] 3 09:17:02 Impacted cerumen of bilateral ears 5502344223876 108 Active 2022 NEGRITO Christian [address], [address], [place], [address] , [employer] [facility] 3 09:31:15 Upper gastrointe stinal bleeding 80976776 Active 2022 NEGRITO Christian [address], [address], [place], [address] , [employer] [facility] 3 16:09:49 Mammograph y abnormal 692588398 Active 2022 NEGRITO Christian [address], [address], [place], [address] , [facility] [employer] [facility] 3 09:43:48 Pain of toe of right foot 4779295411605 01 Active 2022 PRICILA Simmons [address], [address], [place], [address] , [facility] 3 10:10:10 Fracture of foot 49537243 Active 2022 PRICILA Simmons [address], [address], [place], [address] , [facility] 3 08:31:42 Depressive disorder 86080672 Active 2022 Isela pérez, [facility] 3 17:12:29 Pain in toe 965299488 Active 2022 Scar Sahu, DPM [address] [facility], [address], [place], [address] , [employer] 3 17:23:17 Problem Notes None recorded. Procedures Surgical History Date Name Laterality Status Provider Name and Address Organization Details Recorded Time 06/21/19 23 Ear Irrigation completed NEGRITO Christian [address], [address], [place], [address], [employer] 06/20/2022 09:31:06 09/04/19 21 Date of Last Colonoscopy completed Not Available [facility] 06/05/2022 20:38:52 Imaging Results None recorded. Procedure Notes None recorded. Medical Equipment None Reported. Allergies No known drug allergies Medications Name Sig Start Date Stop Date Status Note LastModified by Organization Details LastModified Time cyclobenzap rine 10 mg tablet Take 1 tablet as needed by oral route at bedtime for 30 days. 12/23 completed Not Available Not Available Not Available neomycin-po lymyxin-hyd rocort 3.5 mg/mL-10,00 0 unit/mL-1 % ear solution INSTILL 4 DROPS INTO AFFECTED EAR(S) BY OTIC ROUTE 3 TIMES PER DAY X 7 DAYS active Not Available Not Available No t Available atorvastati n 10 mg tablet TAKE 1 TABLET BY MOUTH EVERY DAY 2022 active Not Available Not Available Not Avai lable hydrocodone 5 mg-acetamin ophen 325 mg tablet TAKE 1 TABLET BY MOUTH EVERY 4 HOURS NEEDED FOR PAIN 03/06 completed Not Available Not Available Not Available venlafaxine ER 150 mg capsule,ext ended release 24 hr TK 1 C PO QD 03/06 completed Not Available Not Available Not Available sumatriptan 50 mg tablet Take on tablet at onset of sx, may repeat in 2 hrs x 1 dose. Do not exceed 200mg in 24 hrs active Not Available Not Available No t Available cyanocobala min (vit B-12) 1,000 mcg tablet TAKE 1 TABLET BY MOUTH EVERY DAY active Not Available Not Available No t Available omeprazole 40 mg capsule,del ayed release 03/06 completed Not Available Not Available Not Available ketorolac 30 mg/mL (1 mL) injection solution Inject 1 mL every day by intramusc ular route for 1 day. 03/06 completed Not Available Not Available Not Available amoxicillin 875 mg tablet Take 1 tablet every 12 hours by oral route for 7 days. active Not Available Not Available No t Available pantoprazol e 40 mg tablet,jordan yed release TAKE ONE TABLET BY MOUTH ONCE DAILY active Not Available Not Available No t Available bupropion HCl 75 mg tablet TAKE 1 TABLET BY MOUTH TWICE A DAY 03/01 completed Not Available Not Available Not Available lisinopril 20 mg-hydrochl orothiazide 25 mg tablet TAKE 1 TABLET BY MOUTH EVERY DAY 2022 active Not Available Not Available Not Avai lable ergocalcife rol (vitamin D2) 1,250 mcg (50,000 unit) capsule TAKE 1 CAPSULE BY MOUTH ONE TIME PER WEEK active Not Available Not Available No t Available fluticasone propionate 50 mcg/actuati on nasal spray,suspe nsion [place] 1 spray every day by intranasa l route for 30 days. active Not Available Not Available No t Available progesteron e micronized 100 mg capsule Take 2 capsules every day by oral route at bedtime for 30 days. 12/23 completed Not Available Not Available Not Available neomycin-po lymyxin-hyd rocort 3.5 mg-10,000 unit/mL-1 % ear drops,susp INSTILL 4 DROPS INTO AFFECTED EAR(S) BY OTIC ROUTE 3 TIMES PER DAY active Not Available Not Available No t Available rosuvastati n 10 mg tablet TK 1 T PO QD HS 03/06 completed Not Available Not Available Not Available bupropion HCl XL 300 mg 24 hr tablet, extended release TAKE 1 TABLET BY MOUTH EVERY DAY IN THE MORNING active Not Available Not Available No t Available bupropion HCl XL 150 mg 24 hr tablet, extended release TAKE 1 TABLET BY MOUTH EVERY DAY IN THE MORNING. 12/23 completed Not Available Not Available Not Available Afluria Quad 2845-0649 (PF) 60 mcg (15 mcg x 4)/0.5 mL IM syringe ADM 0.5ML IM UTD 12/23 completed Not Available Not Available Not Available Vitals Date Recorded Body height Body mass index (BMI) Body weight Body temperature Heart rate Oxygen saturation Oxygen saturation in Arterial blood by Pulse oximetry Systolic blood pressure Diastolic blood pressure Provider Name and Address Organization Details Last Updated DateTime 3 177.8 cm 32.3 kg/m2 648938. 28 g 97.8 [degF] 81 /min 95 % 95 % 128 mm[Hg] 82 mm[Hg] Estella Jones MA [facility] [employer] 3 08:46:54 Date Recorded Body height Body mass index (BMI) Body weight Body temperature Heart rate Oxygen saturation Oxygen saturation in Arterial blood by Pulse oximetry Systolic blood pressure Diastolic blood pressure Provider Name and Address Organization Details Last Updated DateTime 3 177.8 cm 31.9 kg/m2 889891. 51 g 96.9 [degF] 99 /min 98 % 98 % 112 mm[Hg] 78 mm[Hg] Meli Gonzales RN [facility] [employer] 3 16:00:21 Date Recorded Body height Body mass index (BMI) Body weight Body temperature Oxygen saturation Oxygen saturation in Arterial blood by Pulse oximetry Heart rate Systolic blood pressure Diastolic blood pressure Provider Name and Address Organization Details Last Updated DateTime 3 177.8 cm 32.4 kg/m2 745524. 88 g 98 [degF] 98 % 98 % 95 /min 136 mm[Hg] 84 mm[Hg] Sammie Tate CMA [place] [employer] [facility] [employer] 3 08:25:14 Date Recorded Body height Body mass index (BMI) Body weight Heart rate Respiratory rate Oxygen saturation Oxygen saturation in Arterial blood by Pulse oximetry Systolic blood pressure Diastolic blood pressure Provider Name and Address Organization Details Last Updated DateTime 3 177.8 cm 32.4 kg/m2 554451. 88 g 100 /min 14 /min 98 % 98 % 132 mm[Hg] 91 mm[Hg] Lourdes Carter [facility] [employer] 3 16:34:10 Date Recorded Body mass index (BMI) Body height Oxygen saturation Oxygen saturation in Arterial blood by Pulse oximetry Heart rate Body temperature Body weight Systolic blood pressure Diastolic blood pressure Provider Name and Address Organization Details Last Updated DateTime 2 32.1 kg/m2 177.8 cm 97 % 97 % 86 /min 97.1 [degF] 295420. 69 g 110 mm[Hg] 80 mm[Hg] Not Available [employer] 20:39:12 Social History Question Answer Notes LastModified by Organizat [employer] Details LastModified Time Tobacco Smoking Status Never Smoker Kenia pérez [facility] [employer] [facility] 12/23/2022 16:20:48 Do You Have An Advance Directive? No [id number] Information not available 06/05/2022 What Is Your Level Of Caffeine Consumption? Heavy [id number] Information not available 06/05/2022 In The 14 Days Before Symptom Onset, Have You Had Close Contact With A Laboratory-confirm ed COVID-19 While That Case Was Ill? No Information n ot available 12/23/2022 In The 14 Days Before Symptom Onset, Have You Had Close Contact With A Person Who Is Under Investigation For COVID-19 While That Person Was Ill? No Information not available 12/23/2022 What Type Of Diet Are You Following? REGULAR [id number] Information not available 06/05/2022 Which Illicit Or Recreational Drugs Have You Used? None Information not available 12/23/2022 Do You Use Sunscreen Routinely? Yes Information not available 12/23/2022 Have You Recently Traveled Abroad? No Information not available 12/23/2022 Sex: Unknown Functional Status Question Answer Note LastModified by Organizat ion Details LastModified Time What is your level of alcohol consumption? None [id number] Information not available 06/05/2022 What is your occupation? [employer] Information not available 12/23/2022 What is your exercise level? Heavy [id number].[id number] 26 Information not available 06/05/2022 Mental Status None recorded. Family History Relationship Description Onset Age of this Age Resolved Age Notes LastModified by Organization Details LastModified Time Unspecified Relation Diabetes mellitus UNCLE, AUNT, GRANDM OTHER Not available 12/23/2022 17:13:28 Unspecified Relation Cerebrovascu lar accident GRANDM OTHER Not available 12/23/2022 17:13:45 Unspecified Relation Family history of malignant neoplasm GRANDM OTHER AND GRANDF ATHER Not available 12/23/2022 17:14:07 Medical History Condition Response DEPRESSION (INCLUDING POST ) Y HYPERTENSION Y Gynecological History Statement/Question Response Date of Last Mammogram 09/24/2022 Date of Last Colonoscopy 09/03/2020 Obstetrics History GPAL:G 0 P 0 0 0 0 Immunizations Vaccine Type Date Status Note Provider Nam e and Address Organization Details Recorded Time Influenza, split virus, quadrivalent, PF 01/10/2021 completed Not Available [facility] 3 20:40:33 Influenza, split virus, quadrivalent, PF 01/04/2020 completed Not Available [facility] 3 20:40:33 Influenza, split virus, quadrivalent, PF 01/08/2022 completed Not Available [facility] 3 20:40:33 Influenza, split virus, quadrivalent, PF 12/18/2022 completed PRICILA Simmons [address] [place] [address], [facility] [address], [address], [facility] [employer] [facility] 12/18/2022 09:23:49 Past Encounters Encounter ID Performer Location Encounter Start Date Encounter Closed Date Diagnosis/Indication Diagnosis SNOMED-CT Code Diagnosis ICD10 Code Diagnosis Note [id number] NEGRITO Christian [facility] Primary [place] [address] [facility] [facility] [address] [place] [address] 07/19/2020 00:00:00 07/19/2020 20:20:00 [id number] Sarah Chapman MD [facility] Primary [place] [address] [facility] [facility] [place] [address] 11/29/2020 00:00:00 11/30/2020 20:40:04 [id number] Sarah Chapman MD [facility] Primary [place] [address] [facility] [place] [address] 01/10/2021 00:00:00 01/10/2021 15:20:04 [id number] NEGRITO Christian [facility] Primary [place] [address] [facility] [address] [place] [address] 09/06/2021 00:00:00 09/06/2021 17:59:32 [id number] [facility]ITO Christian [facility] [place] [address] [facility] [address] [place] [address] 09/27/2021 00:00:00 09/27/2021 14:19:10 [id number] Durga Noel [facility] [place] [address] [facility] [address] [place] [address] 01/08/2022 00:00:00 01/08/2022 19:26:44 [id number] Sarah Chapman MD [facility] [address] [place] [address] 02/25/2022 00:00:00 02/25/2022 11:42:43 [id number] [facility] [place] [address] [facility] [address] [place] [address] 06/20/2022 08:34:12 06/20/2022 09:23:12 Prediabetes 924889934 R73.03 RxzfinzG6N 6.4 (09/10/21)Di scussed need for regular exercise, increase intake of water/vege tables/fib er. Decrease intake of carbs, especially white rice/pasta /flour/red ad/sugar. Hyperlipidemia 86715578 E78.5 Well controlled HDL 37 (09/10/21)Di scussed need for regular exercise, increase intake of water/vege tables/fib er. Decrease the amount of greasy/fat ty/fried foods in diet. Consider/s tart taking a daily fish oil supplement . Impacted c erumen of bilateral ears 4370150591 920497 H61.23 Chronic, recurrentE ar wash completed by office staff per procedure documentat ion. [id number] NEGRITO Christian [facility] Primary Care [place] [address] [facility] [address] [place] [address] 09/24/2022 15:51:39 09/24/2022 17:59:59 Upper gastrointestinal bleeding 83468766 K92.89 New problem, sx improved with PPI.Advise d to continue with Protonix per hospital GI provider pending outpt appt with GI provider. Pt aware she needs endoscopy and plans to schedule as soon as she leaves the office today. Anti-reflu x measures reviewed: avoid spicy foods, recumbency after eating. Small meals recommende d. Take medication on empty stomach with full glass water.Plea se take medication s correctly and call with any questions. [id number] Sarah Chapman MD [facility] [address] [facility] [address] [address] [place] [address] 12/18/2022 08:14:24 12/18/2022 10:26:09 Fracture of foot 91248786 S92.901A right foot fx-occurre d on 12/09xray [facility]-no ndisplaced fx of 3rd proximal phalanx6/1 0 currently, OTC to manageappr opriate color and sensation, limited ROM and strengthWi ll give post op shoe for comfortWil l give podiatry referral Administra tion of influenza vaccine 68583667 Z23 [id number] Scar Sahu DPM [facility] [place] [address] [place] [address] 12/23/2022 16:19:10 12/23/2022 17:28:26 Fracture of foot 19284237 S92.901A proximal phalanx fracture right 3rd toe, spiral mild displaceme ntx-rays performed today stable finding fracture proximal phalanx 3rd toecontinu e cam bootrice therapyfol low-up 3 weeks for repeat x-rays Pain in toe 772573050 M7 9.674 as above Health Concerns Section Related Observation LastModified by Organization Detai ls LastModified Time None Recorded Concern Status LastModified by Organization Details LastModified Time None Recorded Advance Directives Directive N: Payers Encounter Date Sequence Insurance Name Policy Number Policy Ramsay Covered Member ID Ramsay Member ID Guarantor Name 06/20/2022 1 R [id number] Rosemary Chandra [id number] Rosemary Chandra 09/24/2022 1 R [id number] Rosemary Chandra [id number] Rosemary Chandra 12/18/2022 1 R [id number] Rosemary Chandra [id number] Rosemary Vangel 12/23/2022 1 [facility] [id number] Rosemary Chandra [id number] Rosemary Chandra Notes Date Note Type Note Provider Name and Address Organization Details Recorded Time 06/20/2022 text/html 1. Pt in office for getting her ears cleaned. Pt states she isn't having trouble hearing yet, but doesn't want to wait until she does. States no pain in ear. Last ear wash was in February.2. Pt also requesting labs to check blood sugar and cholesterol levels. NEGRITO Christian [address], [address], [place], [address], [employer] 06/20/2022 09:43:35 09/24/2022 text/html 1. Pt in office to f/u on ER visit for a bleeding ulcer. Pt states she got acid reflux x 4 days that was so severely painful that she wasn't able to sleep, then vomited and finally went to the ER at 09/13/22. States she also had 2 black BMs. Pt states they opted not to admit her and advise to get a scope as an outpt. Pt states she didn't schedule the scope. States that she has gotten some improvement from the protonix prescribed by the ER. Pt states she had an episode like this before, but that went away on it's own. NEGRITO Christian [address], [address], [place], [address], [employer] 09/24/2022 16:34:21 12/18/2022 text/html Pt is here to f/ u for right foot pain PRICILA Simmons [address], [address], [place], [address], [employer] 12/18/2022 09:27:34 12/23/2022 text/html . Patient is a 52-year-old female who presents the office with complaints of pain to her right 3rd toe. Patient states that she hit her foot on a bed rail. Patient states the injury occurred on 12/06/2022. Patient had x-rays at that time which confirmed a spiral fracture of the proximal phalanx 3rd toe. Patient states that she has continued to have pain in the toe and has been utilizing a Cam boot with weight-bearing. Patient states the Cam boot is helping but she is still having a 6/10 pain which she describes as throbbing and aching in nature. Patient denies any open wounds or infection of the foot. Patient states she did have some bruising which has resolved. Patient denies any other complaints. Scar Sahu DPM [address] [facility] [address], [place], [address], [facility] 12/23/2022 17:23:40 OBGyn Episode No OBEpisode recorded.
--- OUTSIDE RECORDS SUMMARY | 2024-09-14 12:04 | XMS_ITS | Patient Health Record ---
Author Organization [facility] Address [address] [facility] [address] [place] [address] Care Team Providers Care Car Rental Agency Manager Name Role Phone [place] Italia MAHAN Primary Care Provider Unavail Claudine Serrato Unavailable [phone] Justine Wang Unavailable [phone] Jennifer Villafana Unavailable [phone] Allergies No Known Allergies Reason For Referral No Information Medications Medication SIG (Take, Route, Frequency, Duration) Notes Start Date End Date Status buPROPion HCl ER (XL) 300 MG 1 tablet in the morning Oral Once a day for 90 days Active Rybelsus 7 MG 1 tablet at least 30 minutes before first food, beverage or other oral medicine of the day Orally Once a day Active Lisinopril-hydroCHLOROthiaz linda 20-25 MG Oral 07/01/2023 Active Atorvastatin Calcium 10 MG Oral 07/01/2023 Active Social History Tobacco Use: Social History Observation Description Date Details (start date - stop date) Never Smoker NA - NA Sex Assigned At : Social History Observation Description Sex Assigned At Female Tobacco Control (Standard) Question Answer Notes Tobacco use: Nonsmoker AUDIT-C (Standard) Question Answer Notes Did you have a drink containing alcohol in the p ast year? No Section Notes: Social History Substance Use Do you or have you ever smoked tobacco?: Never smoker How much tobacco do you smoke?: None Do you or have you ever used e-cigarettes or vape?: Never used electronic cigarettes What was the date of your most recent tobacco screening?: 07/01/2023 What is your level of alcohol consumption?: None How many years have you consumed alcohol?: 8 Do you use any illicit or recreational drugs?: No Which illicit or recreational drugs have you used?: None Have you used IV drugs?: No What is your level of caffeine consumption?: Moderate Education and Occupation What is the highest grade or level of school you have completed or the highest degree you have received?: Associate degree: academic program Are you currently employed?: Yes Who is your employer?: [employer] Marriage and Sexuality What is your relationship status?: Are you sexually active?: No Do you use protection during sex?: No How many children do you have?: 1 Home and Environment Are there any guns present in your home?: Yes Advance Directive Do you have an advance directive?: No Do you have a medical power of attorney recruiter?: No Social History Substance Use Do you or have you ever smoked tobacco?: Never smoker How much tobacco do you smoke?: None Do you or have you ever used e-cigarettes or vape?: Never used electronic cigarettes What was the date of your most recent tobacco screening?: 07/01/2023 What is your level of alcohol consumption?: None How many years have you consumed alcohol?: 8 Do you use any illicit or recreational drugs?: No Which illicit or recreational drugs have you used?: None Have you used IV drugs?: No What is your level of caffeine consumption?: Moderate Education and Occupation What is the highest grade or level of school you have completed or the highest degree you have received?: Associate degree: academic program Are you currently employed?: Yes Who is your employer?: [employer] Marriage and Sexuality What is your relationship status?: Are you sexually active?: No Do you use protection during sex?: No How many children do you have?: 1 Home and Environment Are there any guns present in your home?: Yes Advance Directive Do you have an advance directive?: No Do you have a medical power of attorney recruiter?: No Problems Problem Type SNOMED Code ICD Code Onset Dates Problem Status W/U Status Risk Notes Problem Mild recurrent major depression (28257660) Major depressive disorder, recurrent, mild (F33.0) 4 Active confirmed Problem Anxiety disorder (054487772) Anxiety disorder, unspecified (F41.9) 4 Active confirmed Problem Insomnia related to another mental disorder (F51.05) Active confirmed Vital Signs Heart Rate 89 /min 03/24/2024 Height-cm 177.80 cm 03/24/2024 Blood pressure diastolic 66 mm Hg 03/24/2024 Weight-kg 90.45 kg 03/24/2024 Height 70.00 in 03/24/2024 Blood pressure systolic 103 mm Hg 03/24/2024 Weight 199.4 lbs 03/24/2024 BMI 28.61 kg/m2 03/24/2024 Encounters Encounter Location Date Provider Diagnosis [facility] [address] [address] 10/01/2023 Jennifer Villafana Major depressive disorder, recurrent, mild F33.0 ; Anxiety disorder, unspecified F41.9 and Insomnia related to another mental disorder F51.05 [facility], [address] [address] [place] [phone] 03/24/2024 Justine Wang Major depressive disorder, recurrent, mild F33.0 ; Anxiety disorder, unspecified F41.9 and Insomnia related to another mental disorder F51.05 [facility] [address] [address] 02/05/2024 Jennifer Villafana Assessments Encounter Date Diagnosis (ICD Code) Assessment Notes Treatment Notes Treatment Clinical Notes Section Notes 10/01/2023 Major depressive disorder, recurrent, mild (ICD-10 - F33.0) more sx with increased stressors, likely to be ongoing for some time; discuss option to add on, retry zoloft took in past, or other SSRI, or wait and see. She would like to add on. review r/b/se. add SSRI cont bupropion XL 300mg qam-has refill avail cont counseling f/u 6 wks, earlier if concerns 03/24/2024 Major depressive disorder, recurrent, mild (ICD-10 - F33.0) Common side effects of Wellbutrin include insomnia, increased anxiety, nausea, dizziness, decreased appetite, restlessness, irritability and anger, increased sweating or hot flashes, tremors, joint pain. Wellbutrin is not recommended in individuals with a history of seizures. If side effects persist, please contact the office. 03/24/2024 Anxiety disorder, unspecified (ICD-10 - F41.9) 10/01/2023 Anxiety disorder, unspecified (ICD-10 - F41.9) exacerbation with stressors start lexapro 5mg qhs x 1 wk, then increase to 10mg qhs cont counseling 10/01/2023 Insomnia related to another mental disorder (ICD-10 - F51.05) treat mood, anxiety practice good sleep hygiene 03/24/2024 Insomnia related to another mental disorder (ICD-10 - F51.05) 03/24/2024 Other Discontinue escitalopram, did not start. Mood stable, cont Wellbutrin 300mg daily-refills sent in. Patient educated on all medications including potential benefits, side effects, risks. Educated on proper dosing schedule and importance of compliance. Cont counseling as needed. F/U in 6 months -Assessment and treatment plan reviewed with patient. -Compliance with treatment plan importance discussed. -Discussed the risks/benefits of this medication -Discussed medication side effects. -Contact office if symptoms worsen. -Discussed that it can take up to 6-8 weeks to see full therapeutic effects of psychotropic medications. -Crisis prevention hotline 158. Plan Of Treatment No Information Insurance Providers Payer Name Payer Address Payer Phone Subscriber Number Group Number Insured Name Patient Relationship to Insured Coverage Start Date Coverage End Date [facility] [address] [address] [place] [address] [phone] [id number] MURIEL CONNOR Self - patient is the insured Medical (General) History Medical History History ICD Code Problems: Anxiety Mild recurrent major depression , Surgical History Surgery Date(Month/Year) Procedure on tonsils (310345287) Hysterectomy (96867)
--- OUTSIDE RECORDS SUMMARY | 2024-09-14 12:04 | XMS_ITS | Clinical Summary ---
Author Organization [address] Address [address] [place] [phone] Care Team Providers Care Pathology Specialist Name Role Phone Italia Beatty NP Primary Care Provider [phone] Allergies No known active allergies Medications atorvastatin [...] function study 11/26/2023 Dyspnea on exertion 11/26/2023 Surgical History Surgery Date Site/Laterality Comments HYSTERECTOMY Medical History Medical History Date Comments Hypertension Hyperlipidemia Family History Relation Name Status Comments Father Alive Mother Alive Sister Alive Social History Tobacco Use Types Packs/Day Years Used Date Smoking Tobacco: Never Tobacco Cessation:Counseling Given: Not Answered Personal Safety Answer Date Recorded Getting School Help Needed Not on file 06/21 Comments Unknown Sex and Gender Information Value Date Recorded Sex Assigned at Not on file 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 Gender Identity Not on file Sexual Orientation Not on file Obstetrics History Last Filed Vital Signs Vital Sign Reading [...] 11/26/2023 10:04 AM CDT Plan of Treatment Health Maintenance Due Date Last Done Comments Breast Cancer Screening-Mammogram 1970 Colon Cancer Screening-Colonoscopy 1970 Depression Screening 1970 Hepatitis C Screening 1970 DTaP/Tdap/Td Vaccine (1 - Tdap) 1981 Hepatitis B Screening 1988 Regular Well Visit/Exam 18-64 1988 Zoster Vaccine (1 of 2) 2020 Covid-19 Vaccine ( season) 2023 02/19/2021, 08/03/2020, 07/06/2020 Influenza Vaccine (Season Ended) 2024 12/18/2022, 01/08/2022, 01/10/2021, Additional history exists Pneumococcal vaccine <65 Aged Out No longer eligible based on patient's age to complete this topic Insurance [facility] Care Teams Pathology Specialist Relationship Specialty Start Date End Date Italia Beatty NP [address] [place] [address] PCP - General Nurse Practitioner 11/26/23
== END 2024-09-14 10:47 | disposition home or self-care (01) ==
PROVIDERS: PCP Nurse Practitioner Family; Visit Provider Nurse Practitioner Family
DX: R92.8 Other abnormal and inconclusive findings on diagnostic imaging of breast (principal)
CPT/HCPCS: 76641; 77061; 77065; G0279